=== PATIENT | female | born 1995 | race African-American/Black ===

== ENCOUNTER 2018-06-05 21:55 | Emergency (ER) | payer OTHER ==
--- NOTE | 2018-06-05 22:02 | PDOC ---
History of Present Illness - General Chief Complaint: Vaginal Sxs Stated Complaint: FEMININE ISSUES Time Seen by Provider: 06/05/18 22:02 - History of Present Illness Initial Comments: This otherwise healthy 23-year-old woman, presents with approximately 10 day history of vaginal itching/discharge. She began taking [id number] yeast infection medication (suppository) about a week ago but symptoms persist. Patient has had one previous episode of vaginal yeast infection, treated with fluconazole. That episode began after antibiotic use. The patient has not had any recent antibiotic use/acute illness/oral contraceptive use. She also complains of mild intermittent suprapubic discomfort; there is intermittent pain on urination but no persistent dysuria/hematuria/urinary urgency. No history of fever/chills, vomiting. Patient has a history of bacterial vaginosis but no other acute gynecologic infections. Past History - Past Medical History Allergies/Adverse Reactions: Allergies Allergy/AdvReac Type Severity Reaction Status Date / Time No Known Allergies Allergy Unverified 06/05/18 22:01 Home Medications: Ambulatory Orders Fluconazole [Diflucan] 150 mg PO ONCE #2 tablet 06/05/18 Review of Systems - Review of Systems Able to Perform ROS?: Yes Comments:: 12 point review of systems is negative except for what is noted in the history of present illness *Physical Exam - Physical Exam Comments: GENERAL: HEAD: Normal with no signs of trauma. EYES: PERRLA, EOMI, sclera anicteric, conjunctiva clear. ENT: Ears normal, nares patent, oropharynx clear without exudates. Dry mucous membranes. NECK: Normal range of motion, supple without lymphadenopathy, JVD, or masses. LUNGS: Breath sounds equal, clear to auscultation bilaterally. No wheezes, and no crackles. HEART:Regular rate and rhythm, normal S1 and S2 without murmur, rub or gallop. ABDOMEN:.normal bowel sounds No guarding,tenderness or rebound.No masses No distention. PELVIC: Normal female external genitalia Moderate erythema external vulva with scattered thick whitish discharge Moderately erythematous vaginal vault with thick whitish discharge; no cervical motion tenderness No adnexal tenderness or masses EXTREMITIES: Normal range of motion, no edema. No clubbing or cyanosis. No erythema, or tenderness. NEUROLOGICAL: Cranial nerves II through XII grossly intact. Normal speech. No focal neurological deficits. MUSCULOSKELETAL: Back non-tender to palpation, no CVA tenderness SKIN: Warm, Dry, normal turgor, no rashes or lesions noted. Progress Note - Progress Note Progress Note: Clinical presentation most consistent with uncomplicated candidal vulvovaginitis. Chlamydial/gonorrhea cervical swab sent. PGU negative Urinalysis: 2+ LE on dipstick; 1+ bacteria, small amounts of RBC/wbc microscopic exam. Urine culture and sensitivity sent. Prescription for fluconazole 150 mg (#2) with instructions to take one tablet once, with repeat dosage in72 hours if symptoms persist sent to pharmacy. Meanwhile the patient will follow-up with her pediatric care coordinator in 2 weeks ( appointment already scheduled). If she has more severe pain or develops fever/ vomiting, she should return to ER. *DC/Admit/Observation/Transfer Diagnosis at time of Disposition: Candidal vulvovaginitis - Discharge Dispostion Disposition: HOME Condition at time of disposition: Stable - Prescriptions Prescriptions: Fluconazole [Diflucan] 150 mg PO ONCE #2 tablet - Referrals - Patient Instructions Printed Discharge Instructions: Vaginal Yeast Infection Additional Instructions: Diflucan 150 mg once; repeat in 3 days if symptoms persist Return to ER if you have severe pain/fever/vomiting Follow-up with your pediatric care coordinator as scheduled (sooner if symptoms persist) We will call you if you require any other treatment(for example, antibiotics), as discussed - Post Discharge Activity
[2018-06-05 22:05] VITALS: BP 125/80; PULSE 85; TEMP 98.3; BMI 19.1
[2018-06-05 22:39] LABS: PH,URINE 5.5 (4.5-8); URINE APPEARANCE Clear; URINE BILIRUBIN Negative (NEGATIVE); URINE COLOR Yellow; URINE GLUCOSE (UA) Negative (NEGATIVE); URINE KETONE Negative (NEGATIVE); URINE LEUK ESTERASE 2+ (NEGATIVE); URINE NITRITE Negative (NEGATIVE); URINE PROTEIN Negative (NEGATIVE); URINE UROBILINOGEN 0.2 (0.2-1.0)
[2018-06-05 22:44] LABS: HCG,QUALITATIVE URINE Negative
[2018-06-05 22:48] LABS: EPI CELLS FEW /HPF; URINE RBC 0-2 /hpf (0-3)
[2018-06-05 22:49] LABS: URINE BACTERIA 1+ /hpf (NEGATIVE)
== END 2018-06-05 23:22 | disposition home or self-care (01) ==
LOC: FER 21:55
DX: B37.3 Candidiasis of vulva and vagina (principal)
CPT/HCPCS: 36415; 81003; 81015; 84703; 87086; 87491; 87591; 99281-25